=== PATIENT | female | born 2000 | race Caucasian/White ===

== ENCOUNTER 2023-09-26 09:49 | Observation (INO) | payer BC ==
[~2023-09-26] VITALS: Ht 165.1 cm; Wt 85.3 kg
[~2023-09-26 09:49] MED LIST: DULO1CAP6 PO; HEPARIN SOD (PORCINE) 5000UNITS/ML 1ML VIAL/SYRINGE SQ ONE; IBUP-1022 PO; LIDOCAINE 2% 100MG/5ML SDV (FOR ANES.) As Ordered ONE; LR 1,000 ML IV SCH; MELO7.5T35; MIDAZOLAM INJ 2MG/2ML VIAL As Ordered ONE; ONDANSETRON 4MG 2ML VIAL As Ordered ONE; ROCURONIUM BROMIDE 50MG/5ML VIAL As Ordered ONE; TEST200I14; fentaNYL 250 MCG/5 ML INJECTION As Ordered ONE; propofoL 200 MG/20 ML VIAL As Ordered ONE
[2023-09-26 10:25] LABS: HEMOGLOBIN 15.4 g/dl (12.0-15.5); MEAN CORPUSCULAR HEMOGLOBIN 32.8 pg (27.0-33.0); MEAN CORPUSCULAR VOLUME 93.8 fl (80.0-96.0); PLATELET COUNT, AUTOMATED 288 10^3/uL (150-450); RED BLOOD COUNT 4.69 10^6/uL (4.00-5.40); WHITE BLOOD COUNT 5.1 10^3/uL (4.0-10.0)
[2023-09-26 10:51] LABS: BLOOD UREA NITROGEN 8 MG/DL (9-23); CALCIUM LEVEL 9.6 MG/DL (8.5-10.1); CARBON DIOXIDE LEVEL 27 MMOL/L (20-31); CHLORIDE LEVEL 105 MMOL/L (98-107); CREATININE FOR GFR 0.75 MG/DL (0.55-1.30); GLOMERULAR FILTRATION RATE > 60.0 (>60); GLUCOSE, FASTING 86 MG/DL (60-100); POTASSIUM SERUM 3.9 MMOL/L (3.5-5.1); SODIUM LEVEL 141 MMOL/L (136-145)
[2023-09-26] MEDS ORDERED: GENTAMICIN SULF 80MG/2ML VIAL As Ordered ONE (12:06)
[2023-09-26] MEDS ORDERED: CLINDAMYCIN 900 MG in IV 1 EA IV ONE ×2 (12:30→20:30)
[2023-09-26] MEDS ORDERED: ACETAMINOPHEN 1000MG 100ML IV BAG As Ordered ONE (14:52)
[2023-09-26] MEDS ORDERED: ROCURONIUM BROMIDE 50MG/5ML VIAL As Ordered ONE (15:01)
[2023-09-26] MEDS ORDERED: HYDROmorphone HCL 2MG/ML 1ML VIAL As Ordered ONE (15:02)
[2023-09-26] MEDS ORDERED: SUGAMMADEX SODIUM 500 MG/5 ML VIAL (BRIDION) As Ordered ONE (15:02)
[2023-09-26] MEDS ORDERED: PERCOCET 5MG/325MG TAB PO PRN (16:10)
[2023-09-26] MEDS ORDERED: traMADol 50 MG TAB PO PRN (16:10)
[2023-09-26] MEDS ORDERED: ONDANSETRON 4MG 2ML VIAL IV PRN ×2 (16:10→17:50)
[2023-09-26] MEDS ORDERED: ACETAMINOPHEN TAB 650MG DOSE (2X325MG) PO PRN (16:10)
[2023-09-26] MEDS ORDERED: DESFLURANE 240 ML INHALANT As Ordered ONE (16:56)
[2023-09-26] MEDS ORDERED: fentaNYL 100 MCG/2 ML INJECTION IV PRN (17:50)
[2023-09-26] MEDS ORDERED: oxyCODONE 5MG TAB PO PRN (17:50)
[2023-09-26] MEDS ORDERED: LR 1,000 ML IV SCH (17:50)
[2023-09-26] MEDS ORDERED: HYDROMORPHONE HCL 0.5 MG/ 0.5 ML SYRINGE IV PRN (17:50)
[2023-09-26] MEDS ORDERED: LABETALOL 100MG/20ML VIAL IV PRN (18:15)
[2023-09-26] MEDS: LR 1,000 ML IV SCH (18:27)
[2023-09-26 19:11] VITALS: BP 138/87; TEMP 97.5; O2SAT 95
[2023-09-26 19:41] VITALS: BP 145/92; TEMP 97.7; O2SAT 96
[2023-09-26 20:42] VITALS: BP 140/89; TEMP 97; O2SAT 96
[2023-09-26 21:42] VITALS: BP 140/88; TEMP 97.6; O2SAT 97
[2023-09-26 22:42] VITALS: BP 138/87; TEMP 97.5; O2SAT 97
[2023-09-26 23:43] VITALS: BP 135/90; TEMP 97.8; O2SAT 98
[2023-09-27] VITALS (7 sets, daily range): BP systolic 136–138; BP diastolic 84–87; TEMP 97.2–98.1; O2SAT 95–98
[2023-09-27] MEDS: LR 1,000 ML IV SCH (08:14)
[2023-09-27] MEDS ORDERED: DULoxetine 30MG CAPSULE (CYMBALTA) PO SCH (09:00)
[2023-09-27] MEDS ORDERED: TRAM50TA2 PO (10:31)
== END 2023-09-27 13:05 | disposition home or self-care (01) ==
LOC: M SDC 09:49 → M RR INP 09:50 → M MS5PR 18:55
PROVIDERS: ADMIT Plastic Surgery Surgery of the Hand; ATTEND Plastic Surgery Surgery of the Hand
DX: N62 Hypertrophy of breast (principal); F64.9 Gender identity disorder, unspecified; M79.7 Fibromyalgia; F41.9 Anxiety disorder, unspecified; F32.A Depression, unspecified; G43.909 Migraine, unspecified, not intractable, without status migrainosus; F12.10 Cannabis abuse, uncomplicated; B18.8 Other chronic viral hepatitis; Z79.899 Other long term (current) drug therapy; Z88.0 Allergy status to penicillin
CPT/HCPCS: 19318; 36415; 80048; 81025; 85027; 87635; 88305; 96365; 96375; C9290; J0131; J0665; J0737; J1100; J1170; J1580; J2250; J2405; J3010

== ENCOUNTER 2024-10-13 06:07 | Day surgery (SDC) | payer BC ==
[~2024-10-13] VITALS: Ht 165.1 cm; Wt 95.9 kg
[~2024-10-13 06:07] MED LIST changes: -HEPARIN SOD (PORCINE) 5000UNITS/ML 1ML VIAL/SYRINGE SQ ONE; -LIDOCAINE 2% 100MG/5ML SDV (FOR ANES.) As Ordered ONE; -LR 1,000 ML IV SCH; -MELO7.5T35; +MELO7.5T35 PO; -MIDAZOLAM INJ 2MG/2ML VIAL As Ordered ONE; -ONDANSETRON 4MG 2ML VIAL As Ordered ONE; -ROCURONIUM BROMIDE 50MG/5ML VIAL As Ordered ONE; -TEST200I14; +TEST200I14 SC; +TRAM50TA2 PO; -fentaNYL 250 MCG/5 ML INJECTION As Ordered ONE; -propofoL 200 MG/20 ML VIAL As Ordered ONE
[2024-10-13 06:37] LABS: HEMOGLOBIN 14.6 g/dl (12.0-15.5); MEAN CORPUSCULAR HEMOGLOBIN 33.4 pg (27.0-33.0); MEAN CORPUSCULAR HGB CONC 35.6 g/dl (32.0-36.5); MEAN CORPUSCULAR VOLUME 93.8 fl (80.0-96.0); PLATELET COUNT, AUTOMATED 259 10^3/uL (150-450); RED BLOOD COUNT 4.37 10^6/uL (4.00-5.40)
[2024-10-13 06:59] LABS: BLOOD UREA NITROGEN 10 MG/DL (9-23); CALCIUM LEVEL 9.5 MG/DL (8.5-10.1); CARBON DIOXIDE LEVEL 27 MMOL/L (20-31); CHLORIDE LEVEL 109 MMOL/L (98-107); CREATININE FOR GFR 0.79 MG/DL (0.55-1.30); GLOMERULAR FILTRATION RATE > 60.0 (>60); GLUCOSE, FASTING 89 MG/DL (60-100); POTASSIUM SERUM 3.8 MMOL/L (3.5-5.1); SODIUM LEVEL 144 MMOL/L (136-145)
[2024-10-13] MEDS ORDERED: ROCURONIUM BROMIDE 50MG/5ML VIAL As Ordered ONE (07:21)
[2024-10-13] MEDS ORDERED: propofoL 200 MG/20 ML VIAL As Ordered ONE (07:21)
[2024-10-13] MEDS ORDERED: fentaNYL 250 MCG/5 ML INJECTION As Ordered ONE (07:21)
[2024-10-13] MEDS ORDERED: ONDANSETRON 4MG 2ML VIAL As Ordered ONE (07:21)
[2024-10-13] MEDS ORDERED: LIDOCAINE 2% 100MG/5ML SDV (FOR ANES.) As Ordered ONE (07:21)
[2024-10-13] MEDS ORDERED: MIDAZOLAM INJ 2MG/2ML VIAL As Ordered ONE (07:22)
[2024-10-13] MEDS ORDERED: dexmedeTOMIDine (4MCG/ML)200MCG/50ML BTL (PRECEDEX) As Ordered ONE (07:22)
[2024-10-13] MEDS: ceFAZolin SOD 2 GM in IV 1 EA IV ONE (08:00)
[2024-10-13] MEDS: HEPARIN SOD (PORCINE) 5000UNITS/ML 1ML VIAL/SYRINGE SQ ONE (08:08)
[2024-10-13] MEDS: CIPROFLOXACIN/D5W 400 MG/200 ML BAG As Ordered ONE (08:13)
[2024-10-13] MEDS ORDERED: SUGAMMADEX SODIUM 500 MG/5 ML VIAL (BRIDION) As Ordered ONE (08:27)
[2024-10-13] MEDS ORDERED: ACETAMINOPHEN 1000MG/100ML IV BAG As Ordered ONE (08:27)
[2024-10-13] MEDS: EPINEPHrine INJ 1 MG/ML 1ML AMP As Ordered ONE (08:30)
[2024-10-13] MEDS: LIDOCAINE 1% MDV 20ML VIAL As Ordered ONE (08:30)
[2024-10-13] MEDS ORDERED: HYDROmorphone HCL 2MG/ML 1ML VIAL As Ordered ONE (08:59)
[2024-10-13] MEDS ORDERED: HYDROMORPHONE HCL 0.5 MG/ 0.5 ML SYRINGE IV PRN (11:05)
[2024-10-13] MEDS ORDERED: ONDANSETRON 4MG 2ML VIAL IV PRN (11:05)
[2024-10-13] MEDS ORDERED: oxyCODONE 5MG TAB PO PRN (11:05)
[2024-10-13] MEDS ORDERED: LR 1,000 ML IV SCH (11:05)
[2024-10-13] MEDS ORDERED: fentaNYL 100 MCG/2 ML INJECTION IV PRN (11:05)
[2024-10-13 12:31] VITALS: BP 133/95; TEMP 97.3; O2SAT 97
[2024-10-13] MEDS ORDERED: TRAM50TA2 PO (13:02)
== END 2024-10-13 13:45 | disposition home or self-care (01) ==
LOC: M SDC 06:07
PROVIDERS: ATTEND Plastic Surgery Surgery of the Hand
DX: L91.0 Hypertrophic scar (principal); F64.8 Other gender identity disorders; F41.9 Anxiety disorder, unspecified; F32.A Depression, unspecified; M79.7 Fibromyalgia; G43.909 Migraine, unspecified, not intractable, without status migrainosus; Z79.899 Other long term (current) drug therapy; Z88.0 Allergy status to penicillin; Z87.891 Personal history of nicotine dependence
CPT/HCPCS: 11406; 12036; 36415; 80048; 81025; 85027; 88300; 88302; J0131; J0171; J0744; J1100; J1171; J2250; J2405; J3010